=== PATIENT | female | born 1985 ===

== ENCOUNTER 2024-07-08 20:10 | Emergency (ER) | payer SELFPAY ==
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
== END 2024-07-08 20:29 | disposition left against medical advice (07) ==
DX: R06.02 Shortness of breath (principal)
CPT/HCPCS: 99199